=== PATIENT | male | born 1955 | race Caucasian/White ===

== ENCOUNTER 2020-10-17 21:07 | Inpatient (IN) | payer OTHER, MEDICAID ==
[~2020-10-17] VITALS: Ht 185.4 cm; Wt 116.8 kg
[~2020-10-17 21:07] MED LIST: ALBU2.5V13 NEB; ALBU6.7H9 INH; ALPR-624 PO; AMLO5TAB PO; BUDE10.2 INH; CITA20TA19 PO; FURO-150 PO; ISOS30TA6 PO; LOSA100T57 PO; MELA5CAP PO; NITR0.4T SL; PRAV20TA4 PO; PRED10TA PO; RANI150T8 PO; TRAZ-256 PO
[2020-10-17 21:42] LABS: BASOPHILS # (AUTO) 0.1 X10'3 (0-0.2); BASOPHILS % (AUTO) 0.8 % (0-1); EOSINOPHILS # (AUTO) 0.8 X10'3 (0-0.9); EOSINOPHILS % (AUTO) 6.4 % (0-6); HEMATOCRIT 43.8 % (42.0-52.0); HEMOGLOBIN 14.8 g/dl (14.0-17.9); LYMPHOCYTES # (AUTO) 2.2 X10'3 (1.1-4.8); LYMPHOCYTES % (AUTO) 17.5 % (21-51); MEAN CORPUSCULAR HEMOGLOBIN 31.8 PG (27.0-31.0); MEAN CORPUSCULAR HGB CONC 33.7 g/dL (33.0-36.5); MEAN CORPUSCULAR VOLUME 94.4 FL (78-98); MEAN PLATELET VOLUME 8.6 FL (7.4-10.4); MONOCYTES # (AUTO) 0.9 X10'3 (0-0.9); MONOCYTES % (AUTO) 7.5 % (2-12); NEUTROPHILS # (AUTO) 8.4 X10'3 (1.8-7.7); NEUTROPHILS % (AUTO) 67.8 % (42-75); PLATELET COUNT 191 X10'3 (140-440); RED BLOOD COUNT 4.64 X10'6 (4.70-6.10); RED CELL DISTRIBUTION WIDTH 12.9 % (11.5-14.5); WHITE BLOOD COUNT 12.4 X10'3 (4.5-11.0)
[2020-10-17 21:53] LABS: ALANINE AMINOTRANSFERASE 29 U/L (12-78); ALBUMIN 3.4 G/DL (3.4-5.0); ALBUMIN/GLOBULIN RATIO 0.9 (1.1-1.5); ALKALINE PHOSPHATASE 113 IU/L (46-116); ANION GAP 12 (8-16); ASPARTATE AMINO TRANSFERASE 16 U/L (10-37); BILIRUBIN,TOTAL 0.5 MG/DL (0.1-1.0); BLOOD UREA NITROGEN 12 MG/DL (7-18); BUN/CREATININE RATIO 10.4 (5.4-32.0); CALCIUM 8.3 MG/DL (8.5-10.1); CHLORIDE 103 MMOL/L (99-107); CREATININE 1.15 MG/DL (0.60-1.10); GLUCOSE 136 MG/DL (70-104); SODIUM 139 MMOL/L (135-145); TOTAL CARBON DIOXIDE 24.4 MMOL/L (24-32); TOTAL PROTEIN 7.1 G/DL (6.4-8.2); eGFR 63 ML/MIN
[2020-10-17 22:02] LABS: POTASSIUM 3.5 MMOL/L (3.5-5.1)
[2020-10-17] MEDS ORDERED: methylPREDNISolone sod succ 125mg/2ml vial IV ONE (22:10)
[2020-10-17] MEDS ORDERED: aspirin 325mg tablet PO ONE (22:10)
[2020-10-17 22:30] LABS: D-DIMER 0.21 MG/L FEU (0-0.50)
[2020-10-17] MEDS ORDERED: ISOS30TA9 PO (22:42)
[2020-10-17] MEDS ORDERED: FLUT1BLS4 (22:42)
[2020-10-17] MEDS ORDERED: HYDR-3972 PO (22:42)
[2020-10-17] MEDS ORDERED: ALPR-624 PO (22:42)
[2020-10-17] MEDS ORDERED: FORM1POW5 (22:42)
[2020-10-17] MEDS ORDERED: METO50TA17 PO (22:42)
[2020-10-17] MEDS ORDERED: ALBU18HF2 INH (22:42)
[2020-10-17] MEDS ORDERED: ATOR40TA PO (22:42)
[2020-10-17 23:17] LABS: C-REACTIVE PROTEIN 0.15 MG/DL (0.0-0.5)
[2020-10-18] MEDS ORDERED: acetaminophen 325mg tablet PO PRN (01:15)
[2020-10-18] MEDS ORDERED: potassium Cl 20 mEq SR tablet PO PRN ×2 (01:15)
[2020-10-18] MEDS ORDERED: magnesium hydroxide 30ml (MOM) UD suspension PO PRN (01:15)
[2020-10-18] MEDS ORDERED: mag hydrox/Alum hydrox/simeth 30ml oral suspension PO PRN (01:15)
[2020-10-18] MEDS ORDERED: ondansetron/PF 4mg/2ml inj IV PRN (01:15)
[2020-10-18] MEDS ORDERED: potassium CL 10mEq/100ml bag 100 ML IV PRN ×2 (01:15)
[2020-10-18] MEDS ORDERED: ALPRAZolam 0.5mg tablet PO PRN (01:20)
[2020-10-18] MEDS ORDERED: nitroGLYCERIN 0.4mg SUBLingual tab SL PRN (01:20)
[2020-10-18] MEDS ORDERED: albuterol 2.5 MG/3 ML nebule NEB PRN (01:20)
[2020-10-18] MEDS ORDERED: HYDROcodone/acetaminophen 10/325mg tab PO PRN (01:20)
[2020-10-18 01:52] LABS: HEMOGLOBIN A1C 5.4 % (4.5-6.2)
[2020-10-18] MEDS: albuterol 2.5 MG/3 ML nebule NEB SCH ×4 (03:18→20:16)
--- NOTE | 2020-10-18 05:22 | NUR ---
Pt has been sleeping soundly for the past few hours.
--- NOTE | 2020-10-18 06:39 | NUR ---
Patient in room ED 9. I have received report from Nery GUNN and had the opportunity to ask questions. Awaiting pt arrival to pcu
--- NOTE | 2020-10-18 07:26 | NUR ---
Patient arrived to PCU, VSS
[2020-10-18] MEDS: metoprolol tartrate 50mg tablet PO SCH ×2 (07:27→20:55)
[2020-10-18] MEDS: losartan 50mg tablet PO SCH (07:27)
[2020-10-18] MEDS: heparin, porcine 5000 units/ml vial SQ SCH ×2 (07:28→20:56)
[2020-10-18] MEDS: citalopram 20mg tablet PO SCH (07:28)
[2020-10-18] MEDS: atorvastatin 20mg tablet PO SCH (07:28)
[2020-10-18] MEDS: isosorbide dinitrate 30mg tablet PO SCH (07:28)
[2020-10-18] MEDS: K and/or MAG REPLACEMENT MC SCH ×2 (07:35→20:00)
[2020-10-18] MEDS ORDERED: non-formulary drug (Budesonide/Formoterol Fumarate (Symbicort 160-4.5 Mcg Inhaler) 2 PUFFS INH SCH (08:00)
[2020-10-18] MEDS ORDERED: methylPREDNISolone sod succ/PF 40mg inj. IV SCH (08:00)
[2020-10-18] MEDS: budesonide 0.5mg/2ml UD nebule IH SCH ×2 (08:19→20:16)
[2020-10-18 08:22] VITALS: BP 146/69
[2020-10-18] MEDS ORDERED: pneumococcal 23-VAL P-sac vacc 25 mcg/0.5ml vial IMVAC ONE (09:35)
--- NOTE | 2020-10-18 09:58 | NUR ---
Patient refused 2RN skin check, no visible open wounds/sores, pt states "I do not have anything wrong with my skin", will continue to monitor closely.
[2020-10-18 11:00] VITALS: BP 125/67
[2020-10-18 15:00] VITALS: BP 124/62
[2020-10-18 18:00] VITALS: BP 134/64
--- NOTE | 2020-10-18 18:30 | NUR ---
Patient in room U 3012. I have received report from LUIS A Niño and had the opportunity to ask questions and assume patient care. Patient resting in bed, no signs of distress. Safety measures in place, bed in low and locked position. Call light and personal items within reach. Will continue to monitor throughout shift.
--- NOTE | 2020-10-18 18:33 | NUR ---
Problems reprioritized. Patient report given, questions answered & plan of care reviewed with Avni GUNN.
[2020-10-18] MEDS ORDERED: traZODone 50mg tablet PO SCH (21:00)
[2020-10-18 22:00] VITALS: BP 130/47
[2020-10-19 02:00] VITALS: BP 105/58
[2020-10-19] MEDS: albuterol 2.5 MG/3 ML nebule NEB SCH ×2 (02:25→08:31)
[2020-10-19 05:49] LABS: BASOPHILS % (AUTO) 0.1 % (0-1); EOSINOPHILS % (AUTO) 0 % (0-6); HEMATOCRIT 39.9 % (42.0-52.0); HEMOGLOBIN 13.4 g/dl (14.0-17.9); LYMPHOCYTES # (AUTO) 1.6 X10'3 (1.1-4.8); LYMPHOCYTES % (AUTO) 7.9 % (21-51); MEAN CORPUSCULAR HEMOGLOBIN 31.5 PG (27.0-31.0); MEAN CORPUSCULAR HGB CONC 33.4 g/dL (33.0-36.5); MEAN CORPUSCULAR VOLUME 94.1 FL (78-98); MEAN PLATELET VOLUME 8.8 FL (7.4-10.4); MONOCYTES # (AUTO) 1.8 X10'3 (0-0.9); MONOCYTES % (AUTO) 8.5 % (2-12); NEUTROPHILS # (AUTO) 17.3 X10'3 (1.8-7.7); NEUTROPHILS % (AUTO) 83.5 % (42-75); PLATELET COUNT 197 X10'3 (140-440); RED BLOOD COUNT 4.25 X10'6 (4.70-6.10); RED CELL DISTRIBUTION WIDTH 13.1 % (11.5-14.5); WHITE BLOOD COUNT 20.8 X10'3 (4.5-11.0)
[2020-10-19 06:00] VITALS: BP 123/55
--- NOTE | 2020-10-19 06:00 | NUR ---
Patient in room PCU 3012. I have received report from Avni GUNN and had the opportunity to ask questions and assume patient care.
[2020-10-19 06:08] LABS: ALANINE AMINOTRANSFERASE 22 U/L (12-78); ALBUMIN 3.2 G/DL (3.4-5.0); ALBUMIN/GLOBULIN RATIO 0.9 (1.1-1.5); ALKALINE PHOSPHATASE 88 IU/L (46-116); ANION GAP 7 (8-16); ASPARTATE AMINO TRANSFERASE 13 U/L (10-37); BILIRUBIN,TOTAL 0.5 MG/DL (0.1-1.0); BLOOD UREA NITROGEN 30 MG/DL (7-18); BUN/CREATININE RATIO 23.4 (5.4-32.0); CALCIUM 8.5 MG/DL (8.5-10.1); CHLORIDE 107 MMOL/L (99-107); CREATININE 1.28 MG/DL (0.60-1.10); GLUCOSE 133 MG/DL (70-104); HDL CHOLESTEROL 40 MG/DL (35-60); LDL CHOLESTEROL 55 MG/DL (50-100); POTASSIUM 4.3 MMOL/L (3.5-5.1); SODIUM 141 MMOL/L (135-145); TOTAL CARBON DIOXIDE 27.3 MMOL/L (24-32); TOTAL PROTEIN 6.6 G/DL (6.4-8.2); TRIGLYCERIDES 85 MG/DL (20-135); eGFR 56 ML/MIN
--- NOTE | 2020-10-19 06:17 | NUR ---
Problems reprioritized. Patient report given, questions answered & plan of care reviewed with LUIS A Niño. Patient slept well throughout shift. No signs of distress. Safety measures in place, bed in low and locked position. Call light and personal items within reach. Will continue to monitor for remainder of shift.
[2020-10-19 06:19] LABS: CHOL/HDL RATIO 2.6 (0.00-4.99); CHOLESTEROL 104 MG/DL (0-200)
[2020-10-19] MEDS: atorvastatin 20mg tablet PO SCH (07:34)
[2020-10-19] MEDS: losartan 50mg tablet PO SCH (07:35)
[2020-10-19] MEDS: metoprolol tartrate 50mg tablet PO SCH (07:35)
[2020-10-19] MEDS: isosorbide dinitrate 30mg tablet PO SCH (07:35)
[2020-10-19] MEDS: citalopram 20mg tablet PO SCH (07:35)
[2020-10-19] MEDS: heparin, porcine 5000 units/ml vial SQ SCH (07:37)
[2020-10-19] MEDS: K and/or MAG REPLACEMENT MC SCH (07:45)
[2020-10-19] MEDS ORDERED: predniSONE 20 mg tablet PO SCH (08:00)
[2020-10-19] MEDS ORDERED: pneumococcal 23-VAL P-sac vacc 25 mcg/0.5ml vial IMVAC ONE (08:00)
[2020-10-19] MEDS: budesonide 0.5mg/2ml UD nebule IH SCH (08:31)
[2020-10-19 11:00] VITALS: BP 109/47
--- NOTE | 2020-10-19 11:27 | NUR ---
O2 Sat at rest on room air: 94% If below 89%: If O2 Sat did not drop below 89% on room air,ambulate patient on room air. O2 Sat while ambulating on room air: 97% No further documentation is necessary. If patient does not drop below 89% while ambulating, he/she does not qualify for home O2.
[2020-10-19] MEDS ORDERED: PRED10TA PO (12:13)
--- NOTE | 2020-10-19 12:50 | NUR ---
Stable for discharge per MD orders, all discharge instructions reviewed with the pt and all questions answered, new prescriptions sent to [facility] on [address], educated to call 911 or come back into ER if symptoms worsen, PIV and Tele monitor discontinued, left the unit at 1250 with nurses aide to private vehicle.
== END 2020-10-19 12:50 | disposition home or self-care (01) | DRG 192 ==
LOC: ER 21:08 → ED HOLD 10-18 01:13 → PCU 3S 10-18 07:15
PROVIDERS: ADMIT Internal Medicine; ATTEND Family Medicine
PROC: 3E0234Z Introduction of Serum, Toxoid and Vaccine into Muscle, Percutaneous Approach (ICD-10-PCS; principal; 2020-10-19)
DX: J44.1 Chronic obstructive pulmonary disease with (acute) exacerbation (principal); I25.10 Atherosclerotic heart disease of native coronary artery without angina pectoris; E78.5 Hyperlipidemia, unspecified; F41.9 Anxiety disorder, unspecified; Z20.828 Contact with and (suspected) exposure to other viral communicable diseases; I11.0 Hypertensive heart disease with heart failure; I50.9 Heart failure, unspecified; Z82.49 Family history of ischemic heart disease and other diseases of the circulatory system; Z87.891 Personal history of nicotine dependence; I25.2 Old myocardial infarction; Z90.49 Acquired absence of other specified parts of digestive tract; Z23 Encounter for immunization; Z80.8 Family history of malignant neoplasm of other organs or systems; Z79.899 Other long term (current) drug therapy
CPT/HCPCS: 36415; 71045; 80053; 80061; 82728; 83036; 83615; 83880; 84145; 84484; 85025; 85379; 86140; 87081; 87635; 90732; 93005; 94640; 94760; 96374; 99285; C9803; G0378; J1644; J2920; J2930; J7512; J7626

== ENCOUNTER 2021-02-09 22:46 | Emergency (ER) | payer BC, OTHER ==
[~2021-02-09] VITALS: Ht 182.9 cm; Wt 109.1 kg
[~2021-02-09 22:46] MED LIST changes: +ALBU18HF2 INH; -ALBU6.7H9 INH; -AMLO5TAB PO; +ATOR40TA PO; +FLUT1BLS4; +FORM1POW5; -FURO-150 PO; +HYDR-3972 PO; -ISOS30TA6 PO; +ISOS30TA9 PO; -MELA5CAP PO; +METO50TA17 PO; -PRAV20TA4 PO; -RANI150T8 PO
[2021-02-09 23:41] LABS: BASOPHILS # (AUTO) 0.1 X10'3 (0-0.2); BASOPHILS % (AUTO) 0.7 % (0-1); EOSINOPHILS # (AUTO) 0.8 X10'3 (0-0.9); EOSINOPHILS % (AUTO) 8.7 % (0-6); HEMOGLOBIN 13.7 g/dl (14.0-17.9); LYMPHOCYTES # (AUTO) 2.3 X10'3 (1.1-4.8); LYMPHOCYTES % (AUTO) 23.7 % (21-51); MEAN CORPUSCULAR HEMOGLOBIN 31.8 PG (27.0-31.0); MEAN CORPUSCULAR HGB CONC 33.5 g/dL (33.0-36.5); MEAN CORPUSCULAR VOLUME 94.8 FL (78-98); MEAN PLATELET VOLUME 8.7 FL (7.4-10.4); MONOCYTES # (AUTO) 0.8 X10'3 (0-0.9); MONOCYTES % (AUTO) 8.5 % (2-12); NEUTROPHILS # (AUTO) 5.6 X10'3 (1.8-7.7); NEUTROPHILS % (AUTO) 58.4 % (42-75); PLATELET COUNT 174 X10'3 (140-440); RED BLOOD COUNT 4.33 X10'6 (4.70-6.10); RED CELL DISTRIBUTION WIDTH 12.5 % (11.5-14.5); WHITE BLOOD COUNT 9.5 X10'3 (4.5-11.0)
[2021-02-09 23:53] LABS: ALANINE AMINOTRANSFERASE 24 U/L (12-78); ALBUMIN 3.6 G/DL (3.4-5.0); ALKALINE PHOSPHATASE 106 IU/L (46-116); ANION GAP 8 (8-16); ASPARTATE AMINO TRANSFERASE 15 U/L (10-37); BILIRUBIN,TOTAL 0.4 MG/DL (0.1-1.0); BLOOD UREA NITROGEN 15 MG/DL (7-18); BUN/CREATININE RATIO 14.3 (5.4-32.0); CALCIUM 9.1 MG/DL (8.5-10.1); CHLORIDE 106 MMOL/L (99-107); CREATININE 1.05 MG/DL (0.60-1.10); GLUCOSE 110 MG/DL (70-104); POTASSIUM 3.8 MMOL/L (3.5-5.1); SODIUM 140 MMOL/L (135-145); TOTAL CARBON DIOXIDE 26.3 MMOL/L (24-32); TOTAL PROTEIN 7.1 G/DL (6.4-8.2); eGFR 70 ML/MIN
[2021-02-10] MEDS ORDERED: albuterol 2.5 MG/3 ML nebule CONTNEB PRN (00:10)
[2021-02-10] MEDS ORDERED: predniSONE 20 mg tablet PO ONE (00:10)
[2021-02-10] MEDS ORDERED: ipratropium 0.5 MG/2.5ML nebule IH ONE (00:10)
--- NOTE | 2021-02-10 02:41 | NUR ---
Pt feeling better, informed MD he thinks he's ready to go home. Pt states he has no way to get home, informed him we'll taxi him.
[2021-02-10] MEDS ORDERED: BENZ-16 PO (02:42)
[2021-02-10] MEDS ORDERED: PRED20TA PO (02:50)
[2021-02-10 03:10] VITALS: BP 122/76
== END 2021-02-10 03:12 | disposition home or self-care (01) ==
LOC: ER 22:47
DX: J44.1 Chronic obstructive pulmonary disease with (acute) exacerbation (principal); R07.89 Other chest pain; R06.02 Shortness of breath; I11.0 Hypertensive heart disease with heart failure; I50.9 Heart failure, unspecified; Z90.89 Acquired absence of other organs; Z98.890 Other specified postprocedural states; Z72.89 Other problems related to lifestyle; Z79.899 Other long term (current) drug therapy
CPT/HCPCS: 36415; 71045; 80053; 83880; 84484; 85025; 93005; 94644; 99285; J7512; 94640; 94760

== ENCOUNTER 2021-03-07 14:07 | Emergency (ER) | payer BC, MEDICAID ==
[~2021-03-07] VITALS: Ht 182.9 cm; Wt 106.8 kg
[~2021-03-07 14:07] MED LIST changes: +BENZ-16 PO
[2021-03-07] MEDS ORDERED: ipratropium/albuterol 3ml nebule NEB ONE (14:25)
[2021-03-07] MEDS ORDERED: normal saline 1000ML IV soln IVB ONE (14:25)
[2021-03-07] MEDS ORDERED: methylPREDNISolone sod succ 125mg/2ml vial IV ONE (14:25)
[2021-03-07] MEDS ORDERED: albuterol 2.5 MG/3 ML nebule CONTNEB PRN (14:45)
--- NOTE | 2021-03-07 14:47 | NUR ---
RT AT BEDSIDE, INITIATING A CONT NEB TXTMT
[2021-03-07 14:51] LABS: BASOPHILS # (AUTO) 0.1 X10'3 (0-0.2); BASOPHILS % (AUTO) 0.6 % (0-1); EOSINOPHILS # (AUTO) 0.7 X10'3 (0-0.9); EOSINOPHILS % (AUTO) 8.1 % (0-6); HEMATOCRIT 40.6 % (42.0-52.0); HEMOGLOBIN 13.5 g/dl (14.0-17.9); LYMPHOCYTES % (AUTO) 21.4 % (21-51); MEAN CORPUSCULAR HEMOGLOBIN 31.2 PG (27.0-31.0); MEAN CORPUSCULAR HGB CONC 33.2 g/dL (33.0-36.5); MEAN CORPUSCULAR VOLUME 93.9 FL (78-98); MEAN PLATELET VOLUME 8.5 FL (7.4-10.4); MONOCYTES # (AUTO) 0.7 X10'3 (0-0.9); MONOCYTES % (AUTO) 7.6 % (2-12); NEUTROPHILS # (AUTO) 5.7 X10'3 (1.8-7.7); NEUTROPHILS % (AUTO) 62.3 % (42-75); PLATELET COUNT 177 X10'3 (140-440); RED BLOOD COUNT 4.32 X10'6 (4.70-6.10); RED CELL DISTRIBUTION WIDTH 12.5 % (11.5-14.5); WHITE BLOOD COUNT 9.2 X10'3 (4.5-11.0)
[2021-03-07 15:04] LABS: ALANINE AMINOTRANSFERASE 27 U/L (12-78); ALBUMIN 3.5 G/DL (3.4-5.0); ALKALINE PHOSPHATASE 101 IU/L (46-116); ANION GAP 10 (8-16); ASPARTATE AMINO TRANSFERASE 21 U/L (10-37); BILIRUBIN,TOTAL 0.7 MG/DL (0.1-1.0); BLOOD UREA NITROGEN 14 MG/DL (7-18); BUN/CREATININE RATIO 12.3 (5.4-32.0); CHLORIDE 105 MMOL/L (99-107); CREATININE 1.14 MG/DL (0.60-1.10); GLUCOSE 100 MG/DL (70-104); POTASSIUM 3.9 MMOL/L (3.5-5.1); SODIUM 139 MMOL/L (135-145); TOTAL CARBON DIOXIDE 24.4 MMOL/L (24-32); eGFR 64 ML/MIN
[2021-03-07] MEDS ORDERED: PRED20TA PO (16:13)
[2021-03-07] MEDS ORDERED: albuterol 2.5 MG/3 ML nebule NEB ONE (16:55)
[2021-03-07] MEDS ORDERED: ALB0.5UD IH (16:58)
[2021-03-07 17:43] VITALS: BP 125/71
== END 2021-03-07 17:46 | disposition home or self-care (01) ==
LOC: ER 14:08
DX: J44.1 Chronic obstructive pulmonary disease with (acute) exacerbation (principal); R06.00 Dyspnea, unspecified; R06.2 Wheezing; I11.0 Hypertensive heart disease with heart failure; I50.9 Heart failure, unspecified; J44.9 Chronic obstructive pulmonary disease, unspecified; Z90.89 Acquired absence of other organs; Z98.890 Other specified postprocedural states; Z72.89 Other problems related to lifestyle; Z79.899 Other long term (current) drug therapy
CPT/HCPCS: 36415; 71045; 80053; 83880; 85025; 93005; 94640; 94644; 96361; 96374; 99285; J2930; J7030; 94760

== ENCOUNTER 2021-05-18 07:44 | Emergency (ER) | payer BC, OTHER ==
[~2021-05-18] VITALS: Ht 182.9 cm; Wt 106.8 kg
[~2021-05-18 07:44] MED LIST changes: -BENZ-16 PO
[2021-05-18] MEDS ORDERED: albuterol 2.5 MG/3 ML nebule NEB ONE (07:55)
[2021-05-18] MEDS ORDERED: methylPREDNISolone sod succ 125mg/2ml vial IV ONE (07:55)
[2021-05-18] MEDS ORDERED: normal saline 1000ML IV soln IVB ONE (07:55)
[2021-05-18 08:13] LABS: BASOPHILS # (AUTO) 0.1 X10'3 (0-0.2); BASOPHILS % (AUTO) 0.6 % (0-1); EOSINOPHILS # (AUTO) 1.1 X10'3 (0-0.9); EOSINOPHILS % (AUTO) 12.8 % (0-6); HEMATOCRIT 40.9 % (42.0-52.0); HEMOGLOBIN 13.7 g/dl (14.0-17.9); LYMPHOCYTES # (AUTO) 2.1 X10'3 (1.1-4.8); LYMPHOCYTES % (AUTO) 25.1 % (21-51); MEAN CORPUSCULAR HEMOGLOBIN 31.4 PG (27.0-31.0); MEAN CORPUSCULAR HGB CONC 33.4 g/dL (33.0-36.5); MEAN CORPUSCULAR VOLUME 93.9 FL (78-98); MEAN PLATELET VOLUME 8.2 FL (7.4-10.4); MONOCYTES # (AUTO) 0.8 X10'3 (0-0.9); MONOCYTES % (AUTO) 9.3 % (2-12); NEUTROPHILS # (AUTO) 4.4 X10'3 (1.8-7.7); NEUTROPHILS % (AUTO) 52.2 % (42-75); PLATELET COUNT 159 X10'3 (140-440); RED BLOOD COUNT 4.36 X10'6 (4.70-6.10); RED CELL DISTRIBUTION WIDTH 13.7 % (11.5-14.5); WHITE BLOOD COUNT 8.5 X10'3 (4.5-11.0)
[2021-05-18 08:28] LABS: PARTIAL THROMBOPLASTIN TIME 27 SECONDS (22-32)
[2021-05-18 08:28] LABS: ALANINE AMINOTRANSFERASE 22 U/L (12-78); ALBUMIN 3.4 G/DL (3.4-5.0); ALBUMIN/GLOBULIN RATIO 1.1 (1.1-1.5); ALKALINE PHOSPHATASE 88 IU/L (46-116); ANION GAP 9 (8-16); ASPARTATE AMINO TRANSFERASE 16 U/L (10-37); BILIRUBIN,TOTAL 0.9 MG/DL (0.1-1.0); BLOOD UREA NITROGEN 15 MG/DL (7-18); BUN/CREATININE RATIO 13.3 (5.4-32.0); CALCIUM 8.7 MG/DL (8.5-10.1); CHLORIDE 107 MMOL/L (99-107); CREATININE 1.13 MG/DL (0.60-1.10); GLUCOSE 98 MG/DL (70-104); POTASSIUM 3.7 MMOL/L (3.5-5.1); SODIUM 141 MMOL/L (135-145); TOTAL CARBON DIOXIDE 24.8 MMOL/L (24-32); TOTAL PROTEIN 6.6 G/DL (6.4-8.2); eGFR 65 ML/MIN
[2021-05-18] MEDS ORDERED: DOXYCYCLINE 100MG CAPSULE PO STA (08:43)
[2021-05-18] MEDS ORDERED: albuterol 2.5 MG/3 ML nebule CONTNEB PRN (08:45)
[2021-05-18] MEDS ORDERED: DOXY-1 PO (10:39)
[2021-05-18] MEDS ORDERED: PRED20TA PO (10:39)
[2021-05-18] MEDS ORDERED: BECL7.3A INH (10:39)
[2021-05-18 10:59] VITALS: BP 140/69
== END 2021-05-18 12:05 | disposition home or self-care (01) ==
LOC: ER 07:44
DX: J44.1 Chronic obstructive pulmonary disease with (acute) exacerbation (principal); R06.02 Shortness of breath; R05 Cough; R07.89 Other chest pain; I11.0 Hypertensive heart disease with heart failure; I50.9 Heart failure, unspecified; I25.2 Old myocardial infarction; J44.9 Chronic obstructive pulmonary disease, unspecified; Z90.89 Acquired absence of other organs; Z98.890 Other specified postprocedural states; Z72.89 Other problems related to lifestyle; Z79.2 Long term (current) use of antibiotics; Z79.899 Other long term (current) drug therapy
CPT/HCPCS: 36415; 71045; 80053; 83880; 84484; 85025; 85610; 85730; 93005; 94640; 94644; 96374; 99291; J2930; J7030; 94760; A7015

== ENCOUNTER 2021-09-20 22:11 | Inpatient (IN) | payer BC, OTHER ==
[~2021-09-20] VITALS: Ht 185.4 cm; Wt 103.2 kg
[~2021-09-20 22:11] MED LIST changes: -ALBU2.5V13 NEB; -ALPR-624 PO; +AMLO5TAB16 PO; +BENZ-49 PO; -BUDE10.2 INH; -CITA20TA19 PO; +ESCI-8 PO; -FLUT1BLS4; +FLUT1BLS4 PO; -FORM1POW5; -HYDR-3972 PO; +IPRA3AMP31 PO; +ISOS20TA8 PO; -ISOS30TA9 PO; -PRED10TA PO; +PRED10TA23 PO; -TRAZ-256 PO
[2021-09-20 22:55] LABS: BASOPHILS % (AUTO) 0.2 % (0-1); EOSINOPHILS % (AUTO) 0 % (0-6); HEMATOCRIT 28.9 % (42.0-52.0); HEMOGLOBIN 9.5 g/dl (14.0-17.9); LYMPHOCYTES # (AUTO) 0.3 X10'3 (1.1-4.8); LYMPHOCYTES % (AUTO) 1.9 % (21-51); MEAN CORPUSCULAR HEMOGLOBIN 30.3 PG (27.0-31.0); MEAN CORPUSCULAR HGB CONC 32.9 g/dL (33.0-36.5); MEAN CORPUSCULAR VOLUME 92.2 FL (78-98); MEAN PLATELET VOLUME 7.6 FL (7.4-10.4); MONOCYTES # (AUTO) 0.7 X10'3 (0-0.9); MONOCYTES % (AUTO) 3.7 % (2-12); NEUTROPHILS # (AUTO) 17.5 X10'3 (1.8-7.7); NEUTROPHILS % (AUTO) 94.2 % (42-75); PLATELET COUNT 298 X10'3 (140-440); RED BLOOD COUNT 3.14 X10'6 (4.70-6.10); RED CELL DISTRIBUTION WIDTH 13.3 % (11.5-14.5); WHITE BLOOD COUNT 18.5 X10'3 (4.5-11.0)
[2021-09-20 23:06] LABS: D-DIMER 0.78 MG/L FEU (0-0.50)
[2021-09-20 23:11] LABS: ALANINE AMINOTRANSFERASE 57 U/L (12-78); ALBUMIN 1.8 G/DL (3.4-5.0); ALBUMIN/GLOBULIN RATIO 0.4 (1.1-1.5); ALKALINE PHOSPHATASE 61 IU/L (46-116); ANION GAP 12 (8-16); ASPARTATE AMINO TRANSFERASE 23 U/L (10-37); BILIRUBIN,TOTAL 0.5 MG/DL (0.1-1.0); BLOOD UREA NITROGEN 59 MG/DL (7-18); BUN/CREATININE RATIO 29.4 (5.4-32.0); CALCIUM 8.5 MG/DL (8.5-10.1); CHLORIDE 105 MMOL/L (99-107); CREATININE 2.01 MG/DL (0.60-1.10); GLUCOSE 241 MG/DL (70-104); POTASSIUM 3.8 MMOL/L (3.5-5.1); SODIUM 140 MMOL/L (135-145); TOTAL CARBON DIOXIDE 23.4 MMOL/L (24-32); eGFR 33 ML/MIN
[2021-09-20 23:20] LABS: C-REACTIVE PROTEIN 7.53 MG/DL (0.0-0.5); MAGNESIUM 1.9 MG/DL (1.5-2.4); TROPONIN I < 0.04 NG/ML (0.0-0.05)
[2021-09-20] MEDS ORDERED: azithromycin/NS 500mg/250ml 250 ML IV ONE (23:40)
[2021-09-20] MEDS ORDERED: CefTRIAXone/D5W-Rocephin 1gm 50 ML IV ONE (23:40)
[2021-09-21] MEDS ORDERED: nitroGLYCERIN 0.4mg SUBLingual tab SL PRN (01:15)
[2021-09-21] MEDS ORDERED: morphine 2 MG/ML inj. syringe IV PRN ×2 (01:20)
[2021-09-21] MEDS ORDERED: ondansetron/PF 4mg/2ml inj IV PRN (01:20)
[2021-09-21] MEDS ORDERED: bisacodyl 10mg suppository rectal RC PRN (01:20)
[2021-09-21] MEDS ORDERED: diphenhydrAMINE 50 mg/ml inj IV PRN (01:20)
[2021-09-21] MEDS ORDERED: magnesium hydroxide 30ml (MOM) UD suspension PO PRN (01:20)
[2021-09-21] MEDS ORDERED: mag hydrox/Alum hydrox/simeth 30ml oral suspension PO PRN (01:20)
[2021-09-21] MEDS ORDERED: diphenhydrAMINE 25mg capsule PO PRN (01:20)
[2021-09-21] MEDS ORDERED: acetaminophen 325mg tablet PO PRN ×2 (01:20)
[2021-09-21] MEDS ORDERED: HYDROcodone/acetaminophen 5mg/325mg tablet PO PRN (01:20)
[2021-09-21] MEDS ORDERED: HYDROcodone/acetaminophen 10/325mg tab PO PRN (01:20)
[2021-09-21] MEDS ORDERED: acetaminophen 650mg rectal suppository RC PRN (01:20)
[2021-09-21] MEDS: normal saline 1000ml 1,000 ML IV SCH (02:18)
[2021-09-21 02:36] LABS: PARTIAL THROMBOPLASTIN TIME 25 SECONDS (22-32)
[2021-09-21 02:46] LABS: PHOSPHORUS 5.3 MG/DL (2.3-4.5)
--- NOTE | 2021-09-21 07:00 | NUR ---
pt laying on right side, no distress noted. on monitor. VSS
[2021-09-21] MEDS ORDERED: dexamethasone 4mg/ml inj IV SCH (08:00)
[2021-09-21] MEDS: ipratropium/albuterol 3ml nebule IH SCH ×2 (08:00→10:54)
[2021-09-21] MEDS ORDERED: benzonatate 100mg capsule PO SCH (08:00)
[2021-09-21] MEDS: docusate sod 100mg capsule PO SCH ×2 (08:00→20:21)
[2021-09-21] MEDS: ESCITALOPRAM OXALATE 5 MG TABLET PO SCH (08:26)
[2021-09-21] MEDS: pantoprazole 40mg Tablet.DR PO SCH (08:26)
[2021-09-21] MEDS: metoprolol tartrate 50mg tablet PO SCH (08:27)
[2021-09-21] MEDS: amLODIPine 5mg tablet PO SCH (08:27)
[2021-09-21] MEDS: atorvastatin 20mg tablet PO SCH (08:27)
[2021-09-21] MEDS: enoxaparin 40mg/0.4ml syringe SUBCUT SCH ×2 (08:28→20:22)
[2021-09-21] MEDS ORDERED: magnesium 4gm in 100ml NS 100 ML IV PRN (08:50)
[2021-09-21] MEDS ORDERED: potassium Cl 40MEQ/1/2NS 520ml 520 ML IV PRN (08:50)
[2021-09-21] MEDS ORDERED: magnesium Cl slow-release 64mg tablet PO PRN (08:50)
[2021-09-21] MEDS ORDERED: potassium Cl 20 mEq SR tablet PO PRN ×2 (08:50)
--- NOTE | 2021-09-21 09:01 | NUR ---
called pharmacy about isodil.
--- NOTE | 2021-09-21 10:44 | NUR ---
nebulizer not given per hospital protocol Addendum: 09/21/21 at 1053 by Colette Perry RT Amended: Links added.
--- NOTE | 2021-09-21 12:00 | NUR ---
dr yin at bedside, pt on r/a no distress noted. dr yin stated increase tessalon pearls to tid. order placed. Addendum: 09/21/21 at 1215 by TAYLOR note by mayra
--- NOTE | 2021-09-21 12:39 | NUR ---
echo at bedside Addendum: 09/21/21 at 1241 by TAYLOR note by mayra
[2021-09-21] MEDS: benzonatate 100mg capsule PO SCH ×2 (16:10→23:37)
--- NOTE | 2021-09-21 17:24 | NUR ---
ATTEMPTED TO CALL REPORT, NO ANSWER ON FLOOR AFTER 5 MIN. WILL CALL AGAIN
[2021-09-21 18:00] VITALS: BP 144/58
--- NOTE | 2021-09-21 19:02 | NUR ---
Patient in room ORTHO 4020. I have received report from Ignacio GUNN and had the opportunity to ask questions and assume patient care.
[2021-09-21] MEDS: K and/or MAG REPLACEMENT MC SCH (20:00)
[2021-09-21] MEDS: dexamethasone 4mg/ml inj IV SCH (20:21)
[2021-09-21] MEDS: lactobacillus rhamnosus 10,000 MMU CELLS/CAPSULE PO SCH (20:21)
[2021-09-21] MEDS: losartan 50mg tablet PO SCH (20:33)
[2021-09-21 22:00] VITALS: BP 126/67
[2021-09-21] MEDS: azithromycin/NS 500mg/250ml 250 ML IV SCH (22:39)
[2021-09-21] MEDS: CefTRIAXone/D5W-Rocephin 1gm 50 ML IV SCH (22:39)
[2021-09-22 02:00] VITALS: BP 133/62
[2021-09-22 06:00] VITALS: BP 134/68
--- NOTE | 2021-09-22 06:10 | NUR ---
Problems reprioritized. Patient report given, questions answered & plan of care reviewed with Ignacio GUNN.
[2021-09-22] MEDS: K and/or MAG REPLACEMENT MC SCH ×2 (08:00→20:00)
[2021-09-22 08:17] LABS: BASOPHILS % (AUTO) 0.1 % (0-1); EOSINOPHILS % (AUTO) 0 % (0-6); HEMATOCRIT 25.6 % (42.0-52.0); HEMOGLOBIN 8.4 g/dl (14.0-17.9); LYMPHOCYTES # (AUTO) 0.7 X10'3 (1.1-4.8); LYMPHOCYTES % (AUTO) 3.8 % (21-51); MEAN CORPUSCULAR HEMOGLOBIN 30.5 PG (27.0-31.0); MEAN CORPUSCULAR HGB CONC 32.8 g/dL (33.0-36.5); MEAN PLATELET VOLUME 7.7 FL (7.4-10.4); MONOCYTES # (AUTO) 0.8 X10'3 (0-0.9); MONOCYTES % (AUTO) 4.1 % (2-12); NEUTROPHILS # (AUTO) 17.2 X10'3 (1.8-7.7); PLATELET COUNT 287 X10'3 (140-440); RED BLOOD COUNT 2.75 X10'6 (4.70-6.10); RED CELL DISTRIBUTION WIDTH 13.6 % (11.5-14.5); WHITE BLOOD COUNT 18.7 X10'3 (4.5-11.0)
[2021-09-22] MEDS: enoxaparin 40mg/0.4ml syringe SUBCUT SCH ×2 (08:28→20:13)
[2021-09-22] MEDS: dexamethasone 4mg/ml inj IV SCH ×2 (08:28→20:13)
[2021-09-22] MEDS: ESCITALOPRAM OXALATE 5 MG TABLET PO SCH (08:28)
[2021-09-22] MEDS: metoprolol tartrate 50mg tablet PO SCH (08:29)
[2021-09-22] MEDS: lactobacillus rhamnosus 10,000 MMU CELLS/CAPSULE PO SCH ×2 (08:29→20:13)
[2021-09-22] MEDS: pantoprazole 40mg Tablet.DR PO SCH (08:29)
[2021-09-22] MEDS: benzonatate 100mg capsule PO SCH ×3 (08:29→23:07)
[2021-09-22] MEDS: docusate sod 100mg capsule PO SCH ×3 (08:29→20:13)
[2021-09-22] MEDS: amLODIPine 5mg tablet PO SCH (08:29)
[2021-09-22] MEDS: atorvastatin 20mg tablet PO SCH (08:29)
[2021-09-22 08:36] LABS: D-DIMER 0.51 MG/L FEU (0-0.50)
[2021-09-22 08:50] LABS: ALANINE AMINOTRANSFERASE 67 U/L (12-78); ALBUMIN 1.6 G/DL (3.4-5.0); ALBUMIN/GLOBULIN RATIO 0.4 (1.1-1.5); ALKALINE PHOSPHATASE 56 IU/L (46-116); ANION GAP 7 (8-16); ASPARTATE AMINO TRANSFERASE 39 U/L (10-37); BILIRUBIN,TOTAL 0.4 MG/DL (0.1-1.0); BLOOD UREA NITROGEN 45 MG/DL (7-18); BUN/CREATININE RATIO 28.7 (5.4-32.0); C-REACTIVE PROTEIN 6.97 MG/DL (0.0-0.5); CALCIUM 8.2 MG/DL (8.5-10.1); CHLORIDE 109 MMOL/L (99-107); CREATININE 1.57 MG/DL (0.60-1.10); GLUCOSE 129 MG/DL (70-104); LACTATE DEHYDROGENASE 222 U/L (85-227); MAGNESIUM 1.9 MG/DL (1.5-2.4); POTASSIUM 4.9 MMOL/L (3.5-5.1); SODIUM 142 MMOL/L (135-145); TOTAL CARBON DIOXIDE 26.5 MMOL/L (24-32); TOTAL PROTEIN 5.7 G/DL (6.4-8.2); eGFR 44 ML/MIN
[2021-09-22 10:00] VITALS: BP 108/58
--- NOTE | 2021-09-22 12:35 | NUR ---
DR. NIETO was paged regarding patient idris garcia in covid unit room 20B needs an anxiety med STAT. , he is very anxious . he is interferring with medical accountant . GENNY
[2021-09-22] MEDS ORDERED: haloperidol lactate 5mg/ml inj IM PRN (12:40)
[2021-09-22] MEDS: LORazepam 2 mg/ml vial IV PRN (12:48)
[2021-09-22 17:00] VITALS: BP 135/94
--- NOTE | 2021-09-22 18:45 | NUR ---
Patient in room ORTHO 4020. I have received report from Ignacio GUNN and had the opportunity to ask questions and assume patient care.
[2021-09-22] MEDS: losartan 50mg tablet PO SCH (20:19)
[2021-09-22] MEDS: CefTRIAXone/D5W-Rocephin 1gm 50 ML IV SCH (21:34)
[2021-09-22] MEDS: azithromycin/NS 500mg/250ml 250 ML IV SCH (21:35)
[2021-09-22 22:00] VITALS: BP 108/54
[2021-09-23] VITALS (13 sets, daily range): BP systolic 93–170; BP diastolic 47–66
[2021-09-23] MEDS: normal saline 1000ml 1,000 ML IV SCH ×2 (01:20→23:11)
--- NOTE | 2021-09-23 06:35 | NUR ---
Problems reprioritized. Patient report given, questions answered & plan of care reviewed with Nettie GUNN.
[2021-09-23] MEDS: LORazepam 2 mg/ml vial IV PRN ×2 (07:47→20:17)
[2021-09-23] MEDS: dexamethasone 4mg/ml inj IV SCH ×2 (07:58→20:25)
[2021-09-23] MEDS: K and/or MAG REPLACEMENT MC SCH ×2 (08:00→20:50)
[2021-09-23] MEDS: metoprolol tartrate 50mg tablet PO SCH (08:01)
[2021-09-23] MEDS: atorvastatin 20mg tablet PO SCH (08:02)
[2021-09-23] MEDS: docusate sod 100mg capsule PO SCH ×2 (08:02→20:25)
[2021-09-23] MEDS: amLODIPine 5mg tablet PO SCH (08:02)
[2021-09-23] MEDS: lactobacillus rhamnosus 10,000 MMU CELLS/CAPSULE PO SCH ×2 (08:02→20:25)
[2021-09-23] MEDS: ESCITALOPRAM OXALATE 5 MG TABLET PO SCH (08:03)
[2021-09-23] MEDS: pantoprazole 40mg Tablet.DR PO SCH (08:03)
[2021-09-23] MEDS: benzonatate 100mg capsule PO SCH ×3 (08:03→23:11)
[2021-09-23] MEDS: enoxaparin 40mg/0.4ml syringe SUBCUT SCH (08:05)
[2021-09-23 08:38] LABS: BASOPHILS % (AUTO) 0.1 % (0-1); EOSINOPHILS % (AUTO) 0 % (0-6); LYMPHOCYTES # (AUTO) 1.7 X10'3 (1.1-4.8); LYMPHOCYTES % (AUTO) 5.6 % (21-51); MEAN CORPUSCULAR HEMOGLOBIN 30.3 PG (27.0-31.0); MEAN CORPUSCULAR HGB CONC 33.3 g/dL (33.0-36.5); MEAN PLATELET VOLUME 7.5 FL (7.4-10.4); MONOCYTES # (AUTO) 1.3 X10'3 (0-0.9); MONOCYTES % (AUTO) 4.4 % (2-12); NEUTROPHILS # (AUTO) 26.5 X10'3 (1.8-7.7); NEUTROPHILS % (AUTO) 89.9 % (42-75); PLATELET COUNT 311 X10'3 (140-440); RED BLOOD COUNT 2.06 X10'6 (4.70-6.10); RED CELL DISTRIBUTION WIDTH 13.5 % (11.5-14.5)
[2021-09-23 08:47] LABS: HEMATOCRIT 18.8 % (42.0-52.0); HEMOGLOBIN 6.3 g/dl (14.0-17.9); WHITE BLOOD COUNT 29.5 X10'3 (4.5-11.0)
--- NOTE | 2021-09-23 08:50 | NUR ---
Lab called to indicate some changes on cbc. wbc 29.5, H&H 6.3/18.89. These changes indicate for a need for redraw. Called lab and they will do stat redraw. Pt is very stable and no distress. Will follow up accordingly with MD with new results.
[2021-09-23 08:54] LABS: ALANINE AMINOTRANSFERASE 65 U/L (12-78); ALBUMIN 1.6 G/DL (3.4-5.0); ALBUMIN/GLOBULIN RATIO 0.4 (1.1-1.5); ALKALINE PHOSPHATASE 50 IU/L (46-116); ANION GAP 7 (8-16); ASPARTATE AMINO TRANSFERASE 32 U/L (10-37); BILIRUBIN,TOTAL 0.3 MG/DL (0.1-1.0); BLOOD UREA NITROGEN 75 MG/DL (7-18); BUN/CREATININE RATIO 46.9 (5.4-32.0); C-REACTIVE PROTEIN 2.76 MG/DL (0.0-0.5); CALCIUM 8.1 MG/DL (8.5-10.1); CHLORIDE 111 MMOL/L (99-107); GLUCOSE 101 MG/DL (70-104); LACTATE DEHYDROGENASE 204 U/L (85-227); PHOSPHORUS 3.6 MG/DL (2.3-4.5); POTASSIUM 4.5 MMOL/L (3.5-5.1); SODIUM 141 MMOL/L (135-145); TOTAL CARBON DIOXIDE 22.7 MMOL/L (24-32); TOTAL PROTEIN 5.3 G/DL (6.4-8.2); eGFR 43 ML/MIN
[2021-09-23 09:01] LABS: D-DIMER 0.67 MG/L FEU (0-0.50)
[2021-09-23 10:45] LABS: BASOPHILS # (AUTO) 0.1 X10'3 (0-0.2); BASOPHILS % (AUTO) 0.2 % (0-1); EOSINOPHILS % (AUTO) 0 % (0-6); LYMPHOCYTES # (AUTO) 1.6 X10'3 (1.1-4.8); LYMPHOCYTES % (AUTO) 4.7 % (21-51); MEAN CORPUSCULAR HEMOGLOBIN 29.9 PG (27.0-31.0); MEAN CORPUSCULAR HGB CONC 32.5 g/dL (33.0-36.5); MEAN CORPUSCULAR VOLUME 92.1 FL (78-98); MEAN PLATELET VOLUME 7.5 FL (7.4-10.4); MONOCYTES # (AUTO) 0.9 X10'3 (0-0.9); MONOCYTES % (AUTO) 2.7 % (2-12); NEUTROPHILS # (AUTO) 30.4 X10'3 (1.8-7.7); NEUTROPHILS % (AUTO) 92.4 % (42-75); PLATELET COUNT 345 X10'3 (140-440); RED CELL DISTRIBUTION WIDTH 13.6 % (11.5-14.5)
[2021-09-23 10:48] LABS: HEMOGLOBIN 6.3 g/dl (14.0-17.9)
[2021-09-23 10:49] LABS: HEMATOCRIT 19.4 % (42.0-52.0)
[2021-09-23 10:51] LABS: BASOPHILS % (MANUAL) 0 % (0-1); EOSINOPHILS % (MANUAL) 0 % (0-6); HYPERSEGMENTED NEUTROPHILS 1+; LYMPHOCYTES % (MANUAL) 6 % (21-51); METAMYLEOCYTES% (MANUAL) 1 % (0-0); MONOCYTES % (MANUAL) 3 % (2-12); NEUTROPHILS % (MANUAL) 90 % (42-75); TOTAL CELLS COUNTED 100
[2021-09-23 10:52] LABS: LARGE PLATELETS FEW; PLATELET ESTIMATE NORMAL; SMUDGE CELLS 1+; TOXIC VACUOLATION 2+
[2021-09-23 10:53] LABS: ROULEAUX 2+
[2021-09-23] MEDS ORDERED: normal saline 1000ml 1,000 ML IVB ONE (11:00)
[2021-09-23 11:30] LABS: FERRITIN 846 NG/ML (26-388)
--- NOTE | 2021-09-23 11:38 | NUR ---
Dr Pope notified at 1050 regarding new cbc results wbc 33.0, H&H 6.3/19.4. 1 order of blood ordered. Dr Pope wants 1L fluid bolus given prior to going to CTA due to global president 1.60 and gfr 43. Then maintance fluids of 75ml/hr. Add on CTA abdomen/pelvis. DC rocephin, add on vanco and zosyn. Occult stool and urine sample. Signifigant bruising noted on right side of abdomen, I have repaged Dr Pope with this new info. Patient says it has been there since he was here last week from his lovenox injections.
[2021-09-23] MEDS: piperacillin/tazo 3.375gm/50ml 50 ML IV SCH (12:00)
[2021-09-23 12:01] LABS: % IRON SATURATION 105 % (11-46); IRON 137 UG/DL (53-167); TOTAL IRON BINDING CAPACITY 130 UG/DL (259-388)
[2021-09-23] MEDS ORDERED: iohexol 350MG/ML 100ml bottle IV ONE ×2 (12:30→13:01)
[2021-09-23] MEDS: VANCOMYCIN 750MG IV in NS 250 ML IV SCH ×2 (15:15→23:20)
--- NOTE | 2021-09-23 15:59 | NUR ---
Will start zosyn at 0000 dose due to too many other infusions at this time. pt running vanco, blood, next protonix. Pharmasist says to non-administer 1200dose and start on next cycle.
[2021-09-23] MEDS: pantoprazole 40MG/NS 100ML BAG 100 ML IV SCH ×3 (16:00→22:55)
[2021-09-23 16:12] LABS: URINE AMPHETAMINE SCREEN NEGATIVE (Neg); URINE BARBITUATE SCREEN NEGATIVE (Neg); URINE BENZODIAZEPINES SCREEN NEGATIVE (Neg); URINE CANNABINOID SCREEN NEGATIVE (Neg); URINE COCAINE SCREEN NEGATIVE (Neg); URINE METHADONE SCREEN NEGATIVE (Neg); URINE OPIATE SCREEN NEGATIVE (Neg); URINE PHENCYCLIDINE SCREEN NEGATIVE (Neg)
[2021-09-23 16:14] LABS: UA COLLECTION TYPE NON-SPECIFIED
[2021-09-23 16:15] LABS: CLARITY,URINE CLEAR (Clear); COLOR,URINE YELLOW (Yellow); GLUCOSE, URINE NEGATIVE (Neg); KETONES,URINE NEGATIVE (Neg); LEUKOCYTE ESTERASE ,URINE NEGATIVE (Neg); NITRITES, URINE NEGATIVE (Neg); OCCULT BLOOD,URINE NEGATIVE (Neg); PROTEIN,URINE NEGATIVE (Neg)
--- NOTE | 2021-09-23 19:17 | NUR ---
Report given to vanita Rn, pt resting comfotably in bed, no distress. Blood is finishing.
[2021-09-23] MEDS: losartan 50mg tablet PO SCH (20:32)
[2021-09-23 20:41] LABS: HEMOGLOBIN 7.1 g/dl (14.0-17.9); MEAN CORPUSCULAR HEMOGLOBIN 30.1 PG (27.0-31.0); MEAN CORPUSCULAR HGB CONC 33.3 g/dL (33.0-36.5); MEAN CORPUSCULAR VOLUME 90.4 FL (78-98); MEAN PLATELET VOLUME 7.2 FL (7.4-10.4); PLATELET COUNT 279 X10'3 (140-440); RED BLOOD COUNT 2.37 X10'6 (4.70-6.10); RED CELL DISTRIBUTION WIDTH 13.7 % (11.5-14.5)
[2021-09-23 20:45] LABS: HEMATOCRIT 21.4 % (42.0-52.0); WHITE BLOOD COUNT 26.6 X10'3 (4.5-11.0)
--- NOTE | 2021-09-23 20:50 | NUR ---
Adelfo pt in 4020b with name, Marc Starr has critical wbc of 26.6 and hct of 21.4. All of the labs are trending up from earlier today TREMAYNE HOOKERafter he received 2units of blood and started new abx Vancomycin
[2021-09-23] MEDS ORDERED: doxycycline inj 100 MG in normal saline 100ml IV soln 100 ML IV SCH (23:10)
[2021-09-24] VITALS (9 sets, daily range): BP systolic 119–157; BP diastolic 58–73
[2021-09-24] MEDS: piperacillin/tazo 3.375gm/50ml 50 ML IV SCH ×4 (01:20→23:40)
[2021-09-24] MEDS: pantoprazole 40MG/NS 100ML BAG 100 ML IV SCH ×5 (01:52→22:08)
[2021-09-24 02:22] LABS: MEAN CORPUSCULAR HEMOGLOBIN 30.2 PG (27.0-31.0); MEAN CORPUSCULAR HGB CONC 33.4 g/dL (33.0-36.5); MEAN CORPUSCULAR VOLUME 90.4 FL (78-98); MEAN PLATELET VOLUME 7.3 FL (7.4-10.4); PLATELET COUNT 251 X10'3 (140-440); RED BLOOD COUNT 2.22 X10'6 (4.70-6.10); RED CELL DISTRIBUTION WIDTH 13.8 % (11.5-14.5); WHITE BLOOD COUNT 22.5 X10'3 (4.5-11.0)
[2021-09-24 02:32] LABS: HEMATOCRIT 20.1 % (42.0-52.0); HEMOGLOBIN 6.7 g/dl (14.0-17.9)
[2021-09-24] MEDS: LORazepam 2 mg/ml vial IV PRN ×2 (02:54→21:55)
--- NOTE | 2021-09-24 04:00 | NUR ---
0228 notified by lab hg 6.7 hct 20.1 . vs t 97.9 p 73 rr 18 bp 135/70 o2 sat 95% on r/a . dr pace was notified . informed pt completed 2 units of prbcs yesterday . also informed dr pace that pt had a black stool yesterday. dr pace stated she did not believe pt should be transfused at this time but if pt has a stool , get a sample for occult blood and if stool is positive for blood , get a H@H . charge nurse karina notified
--- NOTE | 2021-09-24 06:21 | NUR ---
resting in bed. no bm overnight . call light within reach
[2021-09-24] MEDS: K and/or MAG REPLACEMENT MC SCH ×2 (08:00→20:00)
[2021-09-24] MEDS: docusate sod 100mg capsule PO SCH ×2 (08:00→20:23)
[2021-09-24] MEDS: dexamethasone 4mg/ml inj IV SCH ×2 (08:07→20:24)
[2021-09-24] MEDS: lactobacillus rhamnosus 10,000 MMU CELLS/CAPSULE PO SCH ×2 (08:09→20:25)
[2021-09-24] MEDS: ESCITALOPRAM OXALATE 5 MG TABLET PO SCH (08:10)
[2021-09-24] MEDS: atorvastatin 20mg tablet PO SCH (08:10)
[2021-09-24] MEDS: amLODIPine 5mg tablet PO SCH (08:11)
[2021-09-24] MEDS: metoprolol tartrate 50mg tablet PO SCH (08:11)
[2021-09-24] MEDS: benzonatate 100mg capsule PO SCH ×3 (08:11→23:40)
[2021-09-24 08:41] LABS: BASOPHILS % (AUTO) 0.1 % (0-1); EOSINOPHILS % (AUTO) 0 % (0-6); HEMOGLOBIN 7.1 g/dl (14.0-17.9); LYMPHOCYTES # (AUTO) 1.7 X10'3 (1.1-4.8); LYMPHOCYTES % (AUTO) 6.9 % (21-51); MEAN CORPUSCULAR HGB CONC 33.2 g/dL (33.0-36.5); MEAN CORPUSCULAR VOLUME 90.4 FL (78-98); MEAN PLATELET VOLUME 7.2 FL (7.4-10.4); MONOCYTES # (AUTO) 1.3 X10'3 (0-0.9); MONOCYTES % (AUTO) 5.6 % (2-12); NEUTROPHILS % (AUTO) 87.4 % (42-75); PLATELET COUNT 276 X10'3 (140-440); RED BLOOD COUNT 2.37 X10'6 (4.70-6.10)
[2021-09-24 08:46] LABS: HEMATOCRIT 21.4 % (42.0-52.0)
[2021-09-24 08:50] LABS: ALANINE AMINOTRANSFERASE 67 U/L (12-78); ALBUMIN 1.6 G/DL (3.4-5.0); ALBUMIN/GLOBULIN RATIO 0.5 (1.1-1.5); ALKALINE PHOSPHATASE 50 IU/L (46-116); ANION GAP 5 (8-16); ASPARTATE AMINO TRANSFERASE 28 U/L (10-37); BILIRUBIN,TOTAL 0.4 MG/DL (0.1-1.0); BLOOD UREA NITROGEN 56 MG/DL (7-18); BUN/CREATININE RATIO 39.7 (5.4-32.0); CALCIUM 7.6 MG/DL (8.5-10.1); CHLORIDE 114 MMOL/L (99-107); CREATININE 1.41 MG/DL (0.60-1.10); GLUCOSE 100 MG/DL (70-104); LACTATE DEHYDROGENASE 200 U/L (85-227); MAGNESIUM 1.9 MG/DL (1.5-2.4); PHOSPHORUS 3.5 MG/DL (2.3-4.5); POTASSIUM 4.6 MMOL/L (3.5-5.1); SODIUM 142 MMOL/L (135-145); TOTAL CARBON DIOXIDE 23.2 MMOL/L (24-32); TOTAL PROTEIN 4.9 G/DL (6.4-8.2); eGFR 50 ML/MIN
[2021-09-24 09:19] LABS: D-DIMER 1.12 MG/L FEU (0-0.50)
[2021-09-24 11:03] LABS: PLATELET ESTIMATE NORMAL; TOTAL CELLS COUNTED 100
[2021-09-24 11:04] LABS: HYPERSEGMENTED NEUTROPHILS 1+; POIKILOCYTOSIS FEW; POLYCHROMASIA 1+; TOXIC GRANULATION 2+
[2021-09-24] MEDS: normal saline 1000ml 1,000 ML IV SCH (11:11)
[2021-09-24] MEDS ORDERED: LIDOcaine Viscous 15ml cup ONE (11:51)
[2021-09-24] MEDS ORDERED: MIDAZolam 1 MG/ML 5ML VIAL ONE (11:51)
[2021-09-24] MEDS ORDERED: fentaNYL/PF 50MCG/1 ML 2ML syringe ONE (11:51)
[2021-09-24] MEDS: VANCOMYCIN 750MG IV in NS 250 ML IV SCH ×2 (12:00→20:51)
[2021-09-24 14:02] LABS: MEAN CORPUSCULAR HEMOGLOBIN 30.2 PG (27.0-31.0); MEAN CORPUSCULAR HGB CONC 33.2 g/dL (33.0-36.5); MEAN CORPUSCULAR VOLUME 91.1 FL (78-98); MEAN PLATELET VOLUME 7.2 FL (7.4-10.4); PLATELET COUNT 273 X10'3 (140-440); RED CELL DISTRIBUTION WIDTH 13.9 % (11.5-14.5)
[2021-09-24 14:05] LABS: HEMATOCRIT 20.1 % (42.0-52.0); HEMOGLOBIN 6.7 g/dl (14.0-17.9)
--- NOTE | 2021-09-24 14:28 | NUR ---
Initial: Pt admitted w/ increasing SOB and dx of Js. Pt currently on 2gNa diet with ~50% intake on admit though up to 100% today meeting needs. LBM 09/23 with some stools noted to be black. Will add double eggs w/ breakfast to help meet increased protein needs. Will continue to monitor. Recs: 1. Continue 2gNa diet as tolerated per MD 2. Double eggs w/ breakfast 3. Bowel care per rx 4. Scaled wt this admit, weekly wt thereafter Addendum: 09/24/21 at [address] Amended: Links added.
[2021-09-24 19:52] LABS: MEAN CORPUSCULAR HEMOGLOBIN 30.5 PG (27.0-31.0); MEAN CORPUSCULAR HGB CONC 33.9 g/dL (33.0-36.5); MEAN CORPUSCULAR VOLUME 90.1 FL (78-98); MEAN PLATELET VOLUME 6.8 FL (7.4-10.4); PLATELET COUNT 249 X10'3 (140-440); RED BLOOD COUNT 2.16 X10'6 (4.70-6.10); RED CELL DISTRIBUTION WIDTH 13.9 % (11.5-14.5); WHITE BLOOD COUNT 18.8 X10'3 (4.5-11.0)
[2021-09-24 20:09] LABS: HEMATOCRIT 19.4 % (42.0-52.0); HEMOGLOBIN 6.6 g/dl (14.0-17.9)
[2021-09-24] MEDS: losartan 50mg tablet PO SCH (20:24)
[2021-09-24] MEDS ORDERED: VANCOMYCIN LEVEL IV ONE (23:30)
[2021-09-25] VITALS (11 sets, daily range): BP systolic 133–175; BP diastolic 51–82
[2021-09-25] MEDS: normal saline 1000ml 1,000 ML IV SCH ×2 (00:31→08:19)
[2021-09-25] MEDS: pantoprazole 40MG/NS 100ML BAG 100 ML IV SCH ×5 (04:34→22:22)
--- NOTE | 2021-09-25 06:28 | NUR ---
Problems reprioritized. Patient report given, questions answered & plan of care reviewed with daryl guzmán.
[2021-09-25] MEDS: K and/or MAG REPLACEMENT MC SCH ×2 (08:00→20:00)
[2021-09-25] MEDS: atorvastatin 20mg tablet PO SCH (08:20)
[2021-09-25] MEDS: dexamethasone 4mg/ml inj IV SCH ×2 (08:20→22:21)
[2021-09-25] MEDS: benzonatate 100mg capsule PO SCH ×2 (08:20→15:39)
[2021-09-25] MEDS: metoprolol tartrate 50mg tablet PO SCH ×2 (08:21→22:21)
[2021-09-25] MEDS: amLODIPine 5mg tablet PO SCH (08:21)
[2021-09-25] MEDS: ESCITALOPRAM OXALATE 5 MG TABLET PO SCH (08:21)
[2021-09-25] MEDS: lactobacillus rhamnosus 10,000 MMU CELLS/CAPSULE PO SCH ×2 (08:21→22:21)
[2021-09-25] MEDS: docusate sod 100mg capsule PO SCH ×2 (08:21→20:00)
[2021-09-25] MEDS: piperacillin/tazo 3.375gm/50ml 50 ML IV SCH ×2 (08:22→15:38)
[2021-09-25] MEDS: VANCOMYCIN 750MG IV in NS 250 ML IV SCH (08:22)
[2021-09-25 09:56] LABS: BASOPHILS % (AUTO) 0 % (0-1); EOSINOPHILS % (AUTO) 0 % (0-6); HEMATOCRIT 25.7 % (42.0-52.0); HEMOGLOBIN 8.7 g/dl (14.0-17.9); LYMPHOCYTES # (AUTO) 1.3 X10'3 (1.1-4.8); LYMPHOCYTES % (AUTO) 5.5 % (21-51); MEAN CORPUSCULAR HEMOGLOBIN 30.4 PG (27.0-31.0); MEAN CORPUSCULAR HGB CONC 33.8 g/dL (33.0-36.5); MEAN CORPUSCULAR VOLUME 90.2 FL (78-98); MEAN PLATELET VOLUME 7.1 FL (7.4-10.4); MONOCYTES # (AUTO) 1.2 X10'3 (0-0.9); NEUTROPHILS # (AUTO) 21.2 X10'3 (1.8-7.7); NEUTROPHILS % (AUTO) 89.5 % (42-75); PLATELET COUNT 257 X10'3 (140-440); RED BLOOD COUNT 2.85 X10'6 (4.70-6.10); RED CELL DISTRIBUTION WIDTH 13.8 % (11.5-14.5); WHITE BLOOD COUNT 23.6 X10'3 (4.5-11.0)
[2021-09-25 10:10] LABS: ANION GAP 9 (8-16); CHLORIDE 113 MMOL/L (99-107); SODIUM 144 MMOL/L (135-145)
[2021-09-25 10:14] LABS: D-DIMER 1.75 MG/L FEU (0-0.50)
[2021-09-25 10:39] LABS: ALANINE AMINOTRANSFERASE 59 U/L (12-78); ALBUMIN 1.7 G/DL (3.4-5.0); ALBUMIN/GLOBULIN RATIO 0.5 (1.1-1.5); ALKALINE PHOSPHATASE 50 IU/L (46-116); ASPARTATE AMINO TRANSFERASE 23 U/L (10-37); BILIRUBIN,TOTAL 0.6 MG/DL (0.1-1.0); BLOOD UREA NITROGEN 34 MG/DL (7-18); BUN/CREATININE RATIO 28.3 (5.4-32.0); C-REACTIVE PROTEIN 0.44 MG/DL (0.0-0.5); CALCIUM 7.6 MG/DL (8.5-10.1); GLUCOSE 131 MG/DL (70-104); LACTATE DEHYDROGENASE 238 U/L (85-227); MAGNESIUM 1.7 MG/DL (1.5-2.4); PHOSPHORUS 3.4 MG/DL (2.3-4.5); TOTAL PROTEIN 5.2 G/DL (6.4-8.2); eGFR 60 ML/MIN
[2021-09-25] MEDS ORDERED: VANCOMYCIN LEVEL IV ONE (11:30)
--- NOTE | 2021-09-25 16:19 | NUR ---
PAGER ID: [phone] MESSAGE: [id number]: Marc Starr: Tele needs to be reordered
[2021-09-25] MEDS: losartan 50mg tablet PO SCH (22:21)
[2021-09-25] MEDS: LORazepam 2 mg/ml vial IV PRN (22:21)
[2021-09-26] MEDS: pantoprazole 40MG/NS 100ML BAG 100 ML IV SCH ×3 (01:00→11:00)
[2021-09-26] MEDS: piperacillin/tazo 3.375gm/50ml 50 ML IV SCH ×2 (01:04→08:31)
[2021-09-26] MEDS: benzonatate 100mg capsule PO SCH ×2 (01:04→08:28)
[2021-09-26] MEDS: vancomycin/NS 1 GM ADD-VANTAGE 250 ML IV SCH ×2 (01:44→08:28)
[2021-09-26 02:14] VITALS: BP 163/75
[2021-09-26] MEDS: normal saline 1000ml 1,000 ML IV SCH (03:11)
[2021-09-26 06:00] VITALS: BP 156/75
[2021-09-26 06:47] LABS: BASOPHILS % (AUTO) 0.1 % (0-1); EOSINOPHILS % (AUTO) 0 % (0-6); HEMATOCRIT 25.3 % (42.0-52.0); HEMOGLOBIN 8.7 g/dl (14.0-17.9); LYMPHOCYTES # (AUTO) 1.2 X10'3 (1.1-4.8); LYMPHOCYTES % (AUTO) 5.7 % (21-51); MEAN CORPUSCULAR HEMOGLOBIN 31.1 PG (27.0-31.0); MEAN CORPUSCULAR HGB CONC 34.2 g/dL (33.0-36.5); MEAN CORPUSCULAR VOLUME 91.1 FL (78-98); MEAN PLATELET VOLUME 7.1 FL (7.4-10.4); MONOCYTES # (AUTO) 1.1 X10'3 (0-0.9); MONOCYTES % (AUTO) 5.2 % (2-12); NEUTROPHILS # (AUTO) 18.9 X10'3 (1.8-7.7); PLATELET COUNT 230 X10'3 (140-440); RED BLOOD COUNT 2.78 X10'6 (4.70-6.10); RED CELL DISTRIBUTION WIDTH 14.1 % (11.5-14.5); WHITE BLOOD COUNT 21.3 X10'3 (4.5-11.0)
[2021-09-26 07:02] LABS: D-DIMER 3.07 MG/L FEU (0-0.50)
[2021-09-26 07:10] LABS: ALANINE AMINOTRANSFERASE 53 U/L (12-78); ALBUMIN 1.7 G/DL (3.4-5.0); ALBUMIN/GLOBULIN RATIO 0.5 (1.1-1.5); ALKALINE PHOSPHATASE 54 IU/L (46-116); ANION GAP 6 (8-16); ASPARTATE AMINO TRANSFERASE 21 U/L (10-37); BILIRUBIN,TOTAL 0.6 MG/DL (0.1-1.0); BLOOD UREA NITROGEN 28 MG/DL (7-18); BUN/CREATININE RATIO 26.7 (5.4-32.0); C-REACTIVE PROTEIN 0.15 MG/DL (0.0-0.5); CALCIUM 7.6 MG/DL (8.5-10.1); CHLORIDE 113 MMOL/L (99-107); CREATININE 1.05 MG/DL (0.60-1.10); GLUCOSE 100 MG/DL (70-104); LACTATE DEHYDROGENASE 254 U/L (85-227); MAGNESIUM 1.8 MG/DL (1.5-2.4); PHOSPHORUS 3.4 MG/DL (2.3-4.5); POTASSIUM 4.5 MMOL/L (3.5-5.1); SODIUM 142 MMOL/L (135-145); TOTAL CARBON DIOXIDE 22.6 MMOL/L (24-32); TOTAL PROTEIN 5.2 G/DL (6.4-8.2); eGFR 70 ML/MIN
[2021-09-26 08:11] LABS: PLATELET ESTIMATE NORMAL; TOTAL CELLS COUNTED 100
[2021-09-26] MEDS: dexamethasone 4mg/ml inj IV SCH (08:28)
[2021-09-26] MEDS: lactobacillus rhamnosus 10,000 MMU CELLS/CAPSULE PO SCH (08:28)
[2021-09-26] MEDS: docusate sod 100mg capsule PO SCH (08:28)
[2021-09-26] MEDS: atorvastatin 20mg tablet PO SCH (08:28)
[2021-09-26] MEDS: ESCITALOPRAM OXALATE 5 MG TABLET PO SCH (08:29)
[2021-09-26] MEDS: amLODIPine 5mg tablet PO SCH (08:32)
[2021-09-26] MEDS: K and/or MAG REPLACEMENT MC SCH (08:32)
[2021-09-26 10:00] VITALS: BP 118/90
[2021-09-26 14:00] VITALS: BP 118/90
[2021-09-26] MEDS ORDERED: LACT1CAP26 PO (14:35)
[2021-09-26] MEDS ORDERED: ASPI-611 PO (14:35)
[2021-09-26] MEDS ORDERED: PRED10TA23 PO (14:37)
[2021-09-26] MEDS ORDERED: SUCR1TAB34 PO (14:41)
[2021-09-26] MEDS ORDERED: PANT40TA54 PO (14:41)
[2021-09-26] MEDS ORDERED: LINE600T12 PO (14:42)
[2021-09-26] MEDS ORDERED: LEVO750T46 PO (14:42)
[2021-09-27] MEDS ORDERED: VANCOMYCIN LEVEL IV ONE (07:30)
== END 2021-09-26 16:19 | disposition home or self-care (01) | DRG 177 ==
LOC: ER 22:12 → ED HOLD 09-21 01:22 → ORTHO 4S 09-21 17:45
PROVIDERS: ADMIT Family Medicine; ATTEND Family Medicine
PROC: 5A0935A Assistance with Respiratory Ventilation, Less than 24 Consecutive Hours, High Flow/Velocity Cannula (ICD-10-PCS; principal; 2021-09-22)
PROC: 30233N1 Transfusion of Nonautologous Red Blood Cells into Peripheral Vein, Percutaneous Approach (ICD-10-PCS; 2021-09-23)
PROC: 0DJ08ZZ Inspection of Upper Intestinal Tract, Via Natural or Artificial Opening Endoscopic (ICD-10-PCS; 2021-09-24)
DX: U07.1 COVID-19 (principal); J12.82 Pneumonia due to coronavirus disease 2019; J96.01 Acute respiratory failure with hypoxia; I50.23 Acute on chronic systolic (congestive) heart failure; J15.9 Unspecified bacterial pneumonia; J44.1 Chronic obstructive pulmonary disease with (acute) exacerbation; N17.9 Acute kidney failure, unspecified; I13.0 Hypertensive heart and chronic kidney disease with heart failure and stage 1 through stage 4 chronic kidney disease, or unspecified chronic kidney disease; J44.0 Chronic obstructive pulmonary disease with (acute) lower respiratory infection; K92.1 Melena; K27.9 Peptic ulcer, site unspecified, unspecified as acute or chronic, without hemorrhage or perforation; E78.5 Hyperlipidemia, unspecified; F41.9 Anxiety disorder, unspecified; N18.9 Chronic kidney disease, unspecified; D64.9 Anemia, unspecified; I25.10 Atherosclerotic heart disease of native coronary artery without angina pectoris; I25.2 Old myocardial infarction; Z72.0 Tobacco use; Z90.49 Acquired absence of other specified parts of digestive tract; Z82.49 Family history of ischemic heart disease and other diseases of the circulatory system; Z80.9 Family history of malignant neoplasm, unspecified; Z79.899 Other long term (current) drug therapy
CPT/HCPCS: 36415; 36430; 43235; 71045; 71275; 74174; 80053; 80202; 80305; 81003; 82607; 82728; 83540; 83550; 83605; 83615; 83735; 83880; 84100; 84145; 84443; 84484; 85007; 85025; 85027; 85379; 85610; 85730; 86140; 86885; 86900; 86901; 86920; 87040; 87081; 93005; 93306; 94760; 96365; 96368; 99152; 99285; A4620; C9113; G0378; J0456; J0696; J1100; J1650; J2060; J2250; J2543; J3010; J3370; J7030; J7040; J7050; P9016; Q9967